=== PATIENT | male | born 1940 | race Caucasian/White ===

== ENCOUNTER 2019-04-18 09:43 | Inpatient (IN) | payer OTHER, MEDICARE ==
[~2019-04-18] VITALS: Ht 180.3 cm; Wt 87.3 kg
--- NOTE | ~2019-04-18 | HC ---
[facility] [address] CONSULTATION Name: ARJUN GOTTI Room #: 436-P ADM IN M.R.#: [id number] Admission: 04/18/19 Attend Phys: Israel Kidd MD Discharge: Date of : 38 Report #: [id number] THIS REPORT FOR: cc: Caesar Moctezuma MD,Jarrett Pruitt MD, MD ~ CC: Israel Moctezuma DATE OF SERVICE: 04/22/2019 HISTORY OF PRESENT ILLNESS: The patient is an 78-year-old male with a prior history of Parkinson's disease with some dementia, atrial fibrillation, who was admitted with acute mental status changes and cellulitis. He had redness of his left thigh. He was noted to have a fever 102, elevated white count. He was diagnosed with sepsis, was treated in the intensive care unit. He had a multifactorial encephalopathy. He is being seen by Infectious Disease and is on IV antibiotics. He is on nasal prong O2. He has had a significant decline from his premorbid functional level. We are seeing him in Rehabilitation Medicine consultation. PAST MEDICAL HISTORY: Includes Parkinson's disease, history of atrial fibrillation and is status post Watchman procedure. PAST SURGICAL HISTORY: As noted above. MEDICATIONS: As noted. ALLERGIES: No known drug allergies. SOCIAL HISTORY: Lives in a house with spouse. No steps. He had a part-time caregiver assistance 4 hours in the morning and 4 hours in the evening. He tends to spend a fair amount of time in a lift chair. The caregivers were able to get him up with at least mod assist with transfers and he was then typically placed in a wheelchair. Once in the wheelchair, they would take him over to the bathroom and he could stand with assistance to go into the bathroom approximately 3 steps with the walker and was able to turn around with assistance and get onto the toilet. assisted him during the non-caregiver times. REVIEW OF SYSTEMS: No specific complaints of chest pain, shortness of breath or abdominal discomfort. PHYSICAL EXAMINATION: GENERAL: An 78-year-old white male, in no obvious distress. VITAL SIGNS: Last recorded temperature 99, pulse 89, respirations 18, blood [address] [address] CONSULTATION Name: ARJUN GOTTI Room #: 436-P [facility] IN [facility].#: [id number] Admission: 04/18/19 Attend Phys: Israel Kidd MD Discharge: Date of : 38 Report #: [id number] pressure 112/62. NEUROLOGIC: The patient is alert, minimal verbalizations. He has masked facies, nasal prong O2 is in place. He was unable to tell me his occasion. He does follow basic 1-step commands, however. Facies appeared symmetric. He does have an obvious resting tremor of the right upper extremity more than the left upper extremity. There is evidence of bradykinesia. He has some cogwheeling of the wrists and elbows bilaterally. He has some evidence of rigidity. Some decreased range of motion of both upper extremities at end range with strength probably a grade 3+/5. Lower extremities, no focal calf swelling. He does have some evidence of rigidity. Strength is probably a grade 3+. He is max assist with sit to stand. He has stood yesterday up to 45 seconds. He does have some lean with sitting. Noted to be dependent with rolling. ASSESSMENT: An 78-year-old male with the following problem list: 1. Multifactorial/metabolic encephalopathy. 2. Parkinson's disease with bradykinesia, resting tremor with some retropulsion noted. 3. Sepsis. 4. Cellulitis. 5. Atrial fibrillation, status post Watchman procedure. 6. Significant assistance needed premorbidly, but nevertheless living in the home setting. PLAN: We are assessing his tolerance for an acute in-hospital inpatient rehabilitation stay. At this point, we will be glad to follow along with you. By: [id number] Jarrett Haro MD /ORIN
[2019-04-18 09:47] VITALS: BP 95/68
[2019-04-18 10:08] LABS: URINE BLOOD NEGATIVE (Negative); URINE CLARITY SL CLOUDY; URINE COLOR YELLOW; URINE GLUCOSE-RANDOM* NEGATIVE (Negative); URINE KETONES 1+ (Negative); URINE LEUKOCYTES-REFLEX NEGATIVE (Negative); URINE NITRITE-REFLEX NEGATIVE (Negative); URINE PROTEIN (DIPSTICK) 2+ (Negative); URINE SPECIFIC GRAVITY 1.025 (1.005-1.035)
[2019-04-18 10:08] LABS: HEMATOCRIT 41.7 % (42.0-52.0); HEMOGLOBIN 14.1 gm/dL (14.0-18.0); MCH 31.8 pg (26.0-34.0); MCHC 33.7 g/dL (28.0-37.0); MCV 94.3 fL (80.0-100.0); PLATELET COUNT 207 thou/uL (150-400); RBC 4.43 mil/uL (4.50-6.00); RDW 12.5 % (10.5-14.5); WBC 19.8 thou/uL (4.0-11.0)
[2019-04-18 10:11] LABS: URINE BILIRUBIN NEGATIVE (Negative)
[2019-04-18 10:12] LABS: ICTOTEST (BILI CONFIRMATORY) Negative (Negative)
[2019-04-18] MEDS ORDERED: KLONOPIN0.5 MG PO (10:19)
[2019-04-18] MEDS ORDERED: AVODART0.5 MG PO (10:20)
[2019-04-18] MEDS ORDERED: REMERON15 M2 PO (10:20)
[2019-04-18] MEDS ORDERED: LEXAPRO20 MG PO (10:20)
[2019-04-18 10:21] LABS: CASTS None Seen /LPF (None Seen); CRYSTALS None Seen /LPF (None Seen); SQUAMOUS 0-3 Few /LPF (0-3); TRANSITIONAL EPITHEL CELL 0-3 Few /LPF (None Seen); URINE WBC-REFLEX None Seen /HPF (0-5)
[2019-04-18 10:21] LABS: ANION GAP 11 mmol/L (7-16); BUN 36 mg/dL (7-18); CALCIUM 8.8 mg/dL (8.5-10.1); CHLORIDE 97 mmol/L (98-107); CO2 27 mmol/L (21-32); CREATININE 1.2 mg/dL (0.7-1.3); GLUCOSE 166 mg/dL (74-106); POTASSIUM 4.4 mmol/L (3.5-5.1); SODIUM 135 mmol/L (136-145)
[2019-04-18] MEDS ORDERED: TRAMADOL 50 MG50 MG PO (10:21)
[2019-04-18] MEDS ORDERED: ULTRAM 50MG TAB50 MG PO (10:21)
[2019-04-18] MEDS ORDERED: RYTARY ER 36.21 EACH PO (10:21)
[2019-04-18 10:22] LABS: AMP/METHAMP Negative (Negative); BACTERIA-REFLEX 1-9 Few /HPF (None Seen); BARBITURATES Negative (Negative); BENZODIAZEPINES Negative (Negative); COCAINE Negative (Negative); METHADONE Negative (Negative); OPIATES Negative (Negative); PCP Negative (Negative); URINE RBC None Seen /HPF (0-2)
[2019-04-18] MEDS ORDERED: ASA81BEC PO (10:22)
[2019-04-18] MEDS ORDERED: FISH OIL 1,001000 M3 PO (10:22)
[2019-04-18] MEDS ORDERED: STOOL SOFTENER100 MG PO (10:23)
[2019-04-18] MEDS ORDERED: POTASSIUM99 M1 PO (10:23)
[2019-04-18 10:24] LABS: MAGNESIUM 1.8 mg/dL (1.8-2.4)
[2019-04-18] MEDS ORDERED: VITAMIN D35000 UNI2 PO (10:24)
[2019-04-18 10:27] LABS: ALBUMIN 3.2 g/dL (3.4-5.0); SGOT 48 U/L (15-37); SGPT 8 U/L (30-65); TOTAL BILIRUBIN 1.1 mg/dL (<0.1-1.0); TOTAL PROTEIN 7.1 g/dL (6.4-8.2)
[2019-04-18 10:36] LABS: ANISOCYTOSIS 1+
[2019-04-18 10:38] LABS: TROPONIN-I <0.06 ng/mL (<0.06)
[2019-04-18 10:40] LABS: TROPONIN-I <0.06 ng/mL (<0.06)
[2019-04-18 12:31] VITALS: BP 91/62
[2019-04-18 15:03] VITALS: BP 105/75
[2019-04-18 15:38] VITALS: BP 104/67
--- NOTE | 2019-04-18 16:43 | NUR ---
NEW ADMIT FOR CELLULITIS OF THE LEFT LEG AND FEVER. PT SLEEPING ON ARRIVAL AND WILL AROUSE WHEN SPOKEN TO OR TOUCH AND RETURNS BACK TO SLEEPING. ADMISSION ASSESMENT AND HISTORY COMPLETED WITH . PT DOES NOT APPEAR TO HAVE PAIN, NO TEMP AT THIS TIME. BED LOCKED AND BED ALARM IN PLACE. WILL MOVE CLOSER TO NURSES STATIONS, PER PATIENT WILL LIKELY TO BE IMPULSIVE. WILL REQUIRE FEEDING WITH MECHANICAL SOFT DIET.FALL PRECAUTIONS IN PLACE. STAFF TO ANTICIPATE NEEDS.
[2019-04-18 19:43] VITALS: BP 123/86
[2019-04-18 19:44] VITALS: BP 123/86
--- NOTE | 2019-04-19 02:15 | NUR ---
ASSUMED CARE FROM DAY SHIFT PT VERY DROWSY AWAKEN WHEN NAME IS CALLED , ASSESSMENT COMPLETES MONITOR SHOWS AFIB ON MARKETING SEGMENT MANAGER, VITAL SIGNS STABLE, PT AWAKEN AROUND 0200 VOIDED 250 ML OF CLEAR YELLOW URINE. PT RESTING WLL THROUGHOUT HOURLY ROUNDS WILL CONITNUE WITH PRESENT PAULA OF CARE AND WILL REPORT CHANGES.
[2019-04-19 04:23] LABS: ABSOLUTE NEUTROPHILS 17.9 thou/uL (1.4-8.2); BASOPHILS 0.3 % (0.0-2.0); HEMATOCRIT 37.5 % (42.0-52.0); MCH 30.8 pg (26.0-34.0); MCV 96.3 fL (80.0-100.0); MONOCYTES 5.1 % (1.0-8.0); PLATELET COUNT 183 thou/uL (150-400); POLYS 89.6 % (36.0-66.0); RBC 3.89 mil/uL (4.50-6.00); WBC 19.9 thou/uL (4.0-11.0)
[2019-04-19 04:36] LABS: CALCIUM 7.4 mg/dL (8.5-10.1); CREATININE 0.8 mg/dL (0.7-1.3); POTASSIUM 4.1 mmol/L (3.5-5.1)
[2019-04-19 05:00] VITALS: BP 110/82
[2019-04-19 07:45] VITALS: BP 102/69
[2019-04-19 12:35] VITALS: BP 109/78
[2019-04-19 15:30] VITALS: BP 110/69
--- NOTE | 2019-04-19 15:52 | NUR ---
ASSUMED CARE 0700. AWAKE TODAY, ALERT TO SELF AND FAMILY. DENIES PAIN, DENIES SOB. DURING EARLY MORING ROUNDS PRIMARY RN NOTED PT WAS GIVEN AMIODARONE DRIP OVER NIGHT. DR BEAL, INSTITUTE SCIENTIST STEVEN, ROSS MADE AWARE. NO ADVERSE REACTION NOTED, VS WNL. UP TO COMMODE WITH MAX ASSIST 5X NO BM AT THIS TIME. REQUEST FOR PRUNE JUICE GIVEN. PT'S LAST BM WAS 04/17. BARRIER CREAM APPLIED TO BUTTOCKS, LEFT LEG ELEVATED ON 2 PILLOWS AND IS RED AND SWOLLON DOWN TO FOOT. AFIB ON TELE RATE CONTROLED. TAKES PILLS WHOLE WITH WATER. HX OF PARKINSONS/DEMENCIA PT WILL SWITCH BETWEEN CHILEAN AND LATVIAN. SET UP WITH MEALS. PT UNABLE TO DEMONSTRATE THE CALL LIGHT. CLOSE TO NURSE STATION FOR OVERSIGHT. FALL PRECAUTION IN PLACE. BEDSIDE AT THIS TIME.
[2019-04-19 20:21] VITALS: BP 118/80
--- NOTE | 2019-04-20 02:45 | NUR ---
ASSUMED CARE OF PATIENT AT 1900. VSS, AFEBRILE. ABLE TO ANSWER SOME ORIENTATION QUESTIONS, HOWEVER GOES BACK AND FORTH BETWEEN LIBERIAN AND WELSH. CONFUSED AT SOME TIMES. USES URINAL WHEN PROMPTED. CAREGIVER AT BEDSIDE UNTIL 10PM. LEFT LEG REMAINS RED AND SWOLLEN, ELEVATED ON PILLOWS. WORKING TOWARDS POC GOALS.
[2019-04-20 05:28] VITALS: BP 129/93
[2019-04-20 05:31] LABS: ABSOLUTE NEUTROPHILS 12.1 thou/uL (1.4-8.2); BASOPHILS 0.2 % (0.0-2.0); EOSINOPHILS 0.6 % (0.0-3.0); HEMATOCRIT 38.5 % (42.0-52.0); HEMOGLOBIN 12.6 gm/dL (14.0-18.0); LYMPHOCYTES 10.3 % (24.0-44.0); MCHC 32.6 g/dL (28.0-37.0); MCV 95.1 fL (80.0-100.0); PLATELET COUNT 229 thou/uL (150-400); POLYS 81.9 % (36.0-66.0); RBC 4.04 mil/uL (4.50-6.00); RDW 12.5 % (10.5-14.5); WBC 14.7 thou/uL (4.0-11.0)
[2019-04-20 05:52] LABS: CALCIUM 8.5 mg/dL (8.5-10.1); CREATININE 0.8 mg/dL (0.7-1.3); POTASSIUM 3.8 mmol/L (3.5-5.1)
[2019-04-20 07:30] VITALS: BP 129/88
--- NOTE | 2019-04-20 10:32 | NUR ---
Assess due to RD consult received. Admit with cellulitis to thigh, fever, encephalopathy. Hx Parkinsons and dementia. Pt unable to answer questions. Caregiver in room-states usually with good appetite but eating "hit or miss" past several days. No wt changes from usual were reported. ST is assessing for swallow eval this am. Will start oral supplement until intake more consistent. Low nutrition risk.
--- NOTE | 2019-04-20 11:19 | NUR ---
ASSUMED CARE AT 0700, SHIFT ASSESSMENT DONE, MEDS GIVEN, VSS. DENIES PAIN, NAUSEA, VOMITING. ALERT TO SELF ONLY, AFIB ON THE MONITOR, RATE CONTROLLED. INCONTINENT OF BOWEL AND BLADDER. LUMBER SALES SUPERVISOR AT THE BEDSIDE. WILL CONTINUE TO ASSESS AND ASSIST WITH ADLs NEEDED.
[2019-04-20 11:20] VITALS: BP 130/90
[2019-04-20 15:25] VITALS: BP 126/68
[2019-04-20 15:30] VITALS: BP 131/89
--- NOTE | 2019-04-20 16:51 | NUR ---
Patient admits with cellulitis and fever. Patient with garbled speech and unable to give hx. He has parkinsons. Sp with at bedside. She reports patient has caregivers at home from 8-12 in am then 8-11 in evening. reports she is caregiver during that time. She reports with Parkinsons she wants to keep patient routine. She reports she heard the word rehab today but she prefers home. Rec HH in past but they have s/o they rec in Dec 2018. would [facility] HH [facility] [place]. PCP Dr Tarun redd. Patient has ramp to home and wc. casemgt following
[2019-04-20 20:21] VITALS: BP 168/85
[2019-04-21 05:22] VITALS: BP 144/85
[2019-04-21 05:22] LABS: HEMATOCRIT 36.1 % (42.0-52.0); HEMOGLOBIN 11.9 gm/dL (14.0-18.0); MCH 31.4 pg (26.0-34.0); MCV 95.2 fL (80.0-100.0); RBC 3.79 mil/uL (4.50-6.00); RDW 12.9 % (10.5-14.5); WBC 12.7 thou/uL (4.0-11.0)
[2019-04-21 05:31] LABS: CALCIUM 8.2 mg/dL (8.5-10.1); CREATININE 0.7 mg/dL (0.7-1.3); POTASSIUM 3.8 mmol/L (3.5-5.1)
[2019-04-21 08:00] VITALS: BP 129/87
--- NOTE | 2019-04-21 10:19 | NUR ---
FAXED REFERRAL TO [facility] SPOKE WITH PENNY IN INTAKE SHE RECEIVED REFERRAL AND WILL REVIEW. DP TO FOLLOW.
[2019-04-21 11:35] VITALS: BP 143/101
--- NOTE | 2019-04-21 15:05 | NUR ---
PT CARE ASSUMED APPROX 0700. ASSESSMENT CHARTED. NO APPARENT PAIN AFTER PAIN MEDS GIVEN. NO SOA OR DISTRESS NOTED OF ANY KIND. VSS. TURNING Q2 HRS AND PRN. GIVEN CLINICAL UPDATES. SHE DENIES QUESTIONS AND CONCERNS OF THIS AM. ELEVATING BLE PER ORDER. TELE DC'D PER HOSPITALIST SO PT TO TRANSFER AT THIS TIME TO MEDSUR UNIT. REPORT CALLED AND RECEIVING NURSE DENIES QUESTIONS OR CONCERNS REGARDING PT'S POC OR TRANSFER. CAREGIVER AT BEDSIDE REPORTS THAT SHE WILL UPDATE THE PT'S TO THE NEW ROOM NUMBER TIMELY. TRANSFERRING AT THIS TIME.
[2019-04-21 15:26] VITALS: BP 130/102
--- NOTE | 2019-04-21 15:31 | NUR ---
patient transferred from CCU to . Rec message [facility] cannot accept patient due to capacity. Caregiver at bedside gave her list of agencies to take to room that patient will transfer. Left message on wifes cell phone.
--- NOTE | 2019-04-21 19:23 | NUR ---
Pt transferred from 2N approx 1600. Pt a&ox1. Q2h turn. Incontinent b&b. Chest x-ray ordered. Family at bedside. Fall precautions in place. Report given to sreedhar REGAN.
[2019-04-21 23:31] VITALS: BP 149/87
[2019-04-22 04:46] VITALS: BP 129/86
[2019-04-22 05:37] LABS: HEMATOCRIT 37.1 % (42.0-52.0); HEMOGLOBIN 12.3 gm/dL (14.0-18.0); MCH 31.5 pg (26.0-34.0); MCV 95.2 fL (80.0-100.0); RBC 3.9 mil/uL (4.50-6.00); RDW 12.8 % (10.5-14.5); WBC 12.3 thou/uL (4.0-11.0)
[2019-04-22 06:09] LABS: CALCIUM 7.9 mg/dL (8.5-10.1); CREATININE 0.8 mg/dL (0.7-1.3); POTASSIUM 3.8 mmol/L (3.5-5.1)
--- NOTE | 2019-04-22 07:50 | NUR ---
ASSUMED PT CARE AT 1900. PT RESTLESS THIS EVENING, MOANING FREQUENTLY. SPOKE TO , GOT ORDER TO PAIN MEDS, DID NOT SEEM TO HELP. FEVER NOTED, GIVEN TYLENOL. O2 SAT MID 80S, PUT ON 3L OF O2. LUNG SOUNDS COASE, SOME WHEEZES/CRACKLES ALL OVER. CORE DROPPER NOTIFIED, STARTING PT ON BREATHING TREATMENTS. REPOSITIONED ON RIGHT SIDE AND BACK ONLY PER FAMILY'S REQUEST. MEDS GIVEN CRUSHED WITH APPLESAUCE. CURRENTLY RESTING COMFORTABLY IN BED.
[2019-04-22 08:07] VITALS: BP 112/62
[2019-04-22 08:47] LABS: % SATURATION 13 % (20-39); IRON 20 ug/dL (65-175); TIBC 149 ug/dL (250-450)
[2019-04-22 09:08] LABS: FOLIC ACID 22.5 ng/mL (8.6-58.9)
--- NOTE | 2019-04-22 09:51 | NUR ---
WOUND CONSULT; THIS PATIENT HAS A DTI, AND HE WAS ADMITTED YESTERDAY. THE INJURY WAS NOTED ON ADMISSION. THE BRUISING MEASURES APPROX. 3 X 3 PUPLE/RED/BROWN SKIN CHANGES PRESENT. THE SKIN IS INTACT. THE PATIENT HAS A LOW AIRLOSS PUMP FOR OFFLOADING AND WEDGES AND PILLOWS ARE EMPLOYED. RECOMMENDATIONS; SUSHANT DAILY/PRN DISCUSSED WITH SHEREEN
--- NOTE | 2019-04-22 14:49 | NUR ---
PHYSICIAN AND PT'S SPOUSE INDICATED THEY WERE INTERESTED IN PT GOING TO 5N. 5N ASSESSED AND INDICATED PT WAS APPROPRIATE FOR ADMISSION ANTICIPATED TOMORROW. CM TO FOLLOW INDICATED WITH DC PLANNING.
--- NOTE | 2019-04-22 14:50 | NUR ---
Assumed care of pt at 0700. Pt a&ox1. Caregiver in the room. Pt's called in the am and had some questions for the doctor. When doctor rounded on the patient, called pt's and questions were answered. Speech consulted. Diet changed to pureed. PT/OT consulted. Pt up to the chair for lunch. Max assist. Q2h turn. IV antibiotics infused. Edema on right lower extremity and testicles. Chest X-ray and KUB ordered. Wound care saw patient for sore on left buttock. Zguard applied. Possible d/c to 5N when ready for discharge. Fall precautions in place. Will continue to monitor.
[2019-04-22 15:42] VITALS: BP 134/93
[2019-04-22 20:00] VITALS: BP 145/107
[2019-04-23 01:00] LABS: BE(vivo) -0.8 mmol/L (-2 to +3); HCO3 22.6 mmol/L (22.0-26.0); PCO2 33.4 mmHg (35.0-45.0); PO2 68.6 mmHg (80.0-100.0); pH 7.448 (7.360-7.450); sO2 94.6 % (92.0-98.0)
[2019-04-23 03:20] VITALS: BP 130/80
[2019-04-23 05:38] LABS: ABSOLUTE NEUTROPHILS 6.2 thou/uL (1.4-8.2); BASOPHILS 0.4 % (0.0-2.0); EOSINOPHILS 0.1 % (0.0-3.0); HEMATOCRIT 34.6 % (42.0-52.0); HEMOGLOBIN 11.6 gm/dL (14.0-18.0); LYMPHOCYTES 7.2 % (24.0-44.0); MCH 31.7 pg (26.0-34.0); MCHC 33.4 g/dL (28.0-37.0); MONOCYTES 10.7 % (1.0-8.0); PLATELET COUNT 221 thou/uL (150-400); POLYS 81.6 % (36.0-66.0); RBC 3.65 mil/uL (4.50-6.00); RDW 12.7 % (10.5-14.5); WBC 7.6 thou/uL (4.0-11.0)
[2019-04-23 05:49] LABS: ALBUMIN 2.4 g/dL (3.4-5.0); CALCIUM 7.8 mg/dL (8.5-10.1); POTASSIUM 3.7 mmol/L (3.5-5.1); TOTAL BILIRUBIN 0.7 mg/dL (<0.1-1.0)
--- NOTE | 2019-04-23 05:55 | NUR ---
ASSUMED PT CARE AT APPROX 1900.PT WAS OBSERVED SITTING UP IN HIS BED AND WATCHING TV AT THE START OF SHIFT.PT OBSERVED TO BE ON 2L/NC.PT STARTED HAVING LABORED BREATHING AND WAS REALLY RESTLESS.PANTRY GOODS MAKER ON DUTY NOTIFIED,ORDER NOTED TO GIVE LASIX ONETIME AND INSERT SHAW CATH.ORDER NOTED.DR SULTANA HERE TO SEE PT,ORDER NOTED TO DO A BLADDER SCAN.PT WAS FOUND TO BE RETAINING SOME URINE.LASIX GIVEN AND SHAW INSERTED,GOT GREATER THAN 350CC OUT IMMEDIATELY. PT WAS STILL RESTLESS AND CLONAZEPAM WAS ADMINISTERED.PT CONT TO HAVE CRACKLES AND STRUGGLING TO BREATHE,PANTRY GOODS MAKER ON DUTY NOTIFIED,ORDER NOTED TO DO CXR STAT.RESULT READ TO THE PANTRY GOODS MAKER.PT CONT ON RT TX ORDERD AND PRN TX GIVEN ALSO.PT'S CALLED FOR UPDATE ON PT AND SHE WAS NOTIFIED THAT SHAW WAS INSERTED FOR RETENTION.PT'S WAS NOT HAPPY WITH THE NEWS BECAUSE SHE WAS ABOUT TO STOP THE PROCEDURE.PT'S WAS HEARD IN THE BACKGROUND SCREAMING"OH MY GOD" PT'S WAS EDUCATED ON THE REASON WHY PT NEEDED THE SHAW.PT'S CAREGIVER IN THE ROOM.PT'S LATER CAME TO THE FLOOR IN THE COMPANY OF HER SISTER AND SHE APOLOGIZED FOR ACTING THE WAY SHE DID.PORTABLE CXR DONE,ABG DONE.PT REPOSITIONED WHILE IN BED PER FAMILY'S REQUEST AND DIRECTION.PT FEBRILE EARLIER ON THE SHIFT,TYLENOL ADMINISTERED,NOT EFFECTIVE.PT SLEEPY,UNABLE TO SWALLOW ANYTHING ,PANTRY GOODS MAKER NOTIFIED TO CHANGE HIS PO TYLENOL TO SUPPOSITORY.MAG CITRATE GIVEN AT START OF SHIFT BUT PT ONLY ABLE TO DRINK SOME OF IT.NO BM SO FAR THIS SHIFT.PT RESTING ON HIS BED AT THIS TIME,CONT ON 2L/NC.FALL PRECAUTIONS IN PLACE,CALL LIGHT WITHIN REACH.
[2019-04-23 07:40] VITALS: BP 90/60
[2019-04-23 08:00] VITALS: BP 124/86
--- NOTE | 2019-04-23 14:38 | NUR ---
IT WAS ANTICPATED THAT PT WOULD BE MEDICALLY STABLE TO DC TO 5N THIS DAY BUT CARE TEAM INIDCATED THAT PT IS NOT YET READY. 5N ABLE TO ACCEPT ONCE MEDICALLY STABLE. CM TO FOLLOW INDICATED WITH DC PLANNING.
[2019-04-23 15:10] VITALS: BP 100/75
--- NOTE | 2019-04-23 18:30 | NUR ---
PT ASSESSED AT START OF SHIFT. AT BEDSIDE THIS AM AFTER STAYING THE NOC. AND RN TRIED TO AROUSE PT BUT HE WAS TOO SLEEPY FROM ANTIANXIETY MED GIVEN LAST NOC AND WAS NOT ABLE TO AWAKEN ENOUGH TO TAKE MEDS SAFELY. PT TURNED Q2HRS. ABLE TO GIVEN PARKINSON'S MED LATE MORNING AND MID AFTERNOON W/ THICKENED WATER AND DID WELL. PT BECAME ALERT AROUND 1830 AND TRIED TO TALK W/ CAREGIVER. RESP EVEN AND UNLABORED AT THIS TIME. BREATH SOUNDS CONJESTED W/ SOME TIGHTNESS ON LLL NOTED.
[2019-04-23 19:15] VITALS: BP 129/93
[2019-04-24 00:42] VITALS: BP 111/74
--- NOTE | 2019-04-24 03:34 | NUR ---
RECIEVED CARE AT 1900. PATIENT ALERT AND ORIENTED TO SELF. PATIENT INTERACTING WITH CAREGIVER AND [id number]. PATIENT DEVELOPED A FEVER OF 101.3. TYLENOL SUPPOSIROTY GIVEN. HAD BM RIGHT AFTER AND PART OF SUPPOSITORY CAME OUT. TEMP RETAKEN A LITTLE LATER AND WAS 102.4. TYLENOL SUPPOSITORY WAS GIVEN AGAIN. THESE TEMPS WERE TAKEN AXULARRY. NURSE PRACTIONER WAS NOTIFIED AND SHE WANTED TEMP TO BE TAKEN RECTAL. TEMP TAKEN RECTAL AND WAS 102.7. NURSE PRACTIONER WAS NOTIFIED WELL DR PERRY SULTANA. DR SULTANA ORDERED VANCO TO BE GIVEN. WAS HUNG WHEN RECIEVED FROM PHARMACY. PATIENT HAD BEEN RESTLESS WITH LOTS OF MOANING FIRST PART OF NIGHT. PATIENT APPEARS TO BE RESTING PEACEFULLY AT THIS TIME.
--- NOTE | 2019-04-24 04:14 | NUR ---
TEMP AT 0410 WAS 99.9.
[2019-04-24 04:15] VITALS: BP 105/76
[2019-04-24 07:59] VITALS: BP 140/86
--- NOTE | 2019-04-24 08:56 | NUR ---
WOUND CARE F/U ASSESSED WOUND L BUTTOCK W/ ASSISTANT DESIGNER, DTI NOTED, REMAINS PURPLISH/DARK TISSUE, NONBLANCHABLE,NO OPEN AREAS, COOPERATIVE, REMAINS ON LOW AIR LOSS PUMP TO BED RECOMMENDATIONS ZGUARD DAILY AND PRN, CONT LOW AIR LOSS TO BED, OFF LOADING, W/ PILLOWS AND WEDGES, TURN AT LEAST Q 2HOURS ASSISTANT DESIGNER AWARE
[2019-04-24 09:31] LABS: HEMATOCRIT 35.3 % (42.0-52.0); HEMOGLOBIN 11.6 gm/dL (14.0-18.0); MCH 31.3 pg (26.0-34.0); MCHC 32.8 g/dL (28.0-37.0); MCV 95.5 fL (80.0-100.0); RBC 3.7 mil/uL (4.50-6.00); RDW 13.2 % (10.5-14.5); WBC 7.7 thou/uL (4.0-11.0)
[2019-04-24 09:38] LABS: CALCIUM 7.9 mg/dL (8.5-10.1); CREATININE 0.7 mg/dL (0.7-1.3); MAGNESIUM 1.6 mg/dL (1.8-2.4); POTASSIUM 3.5 mmol/L (3.5-5.1)
--- NOTE | 2019-04-24 14:49 | NUR ---
CARE TEAM INDICATED THAT PT IS SLOWLEY PROGRESSING TOWARD GOAL OF DISCHARGE TO 5N. CARE TEAM INDICATED THAT PT MAY BE READY SATURDAY OR SATURDAY. NOTIFY STAFF AND SPOUSE WHEN MEDICALLY STABLE. CM TO FOLLOW INDICATED WITH DC PLANNING.
[2019-04-24 14:57] LABS: URINE BILIRUBIN NEGATIVE (Negative); URINE BLOOD 3+ (Negative); URINE CLARITY CLEAR; URINE COLOR YELLOW; URINE GLUCOSE-RANDOM* NEGATIVE (Negative); URINE KETONES TRACE (Negative); URINE LEUKOCYTES-REFLEX NEGATIVE (Negative); URINE NITRITE-REFLEX NEGATIVE (Negative); URINE PROTEIN (DIPSTICK) 1+ (Negative); URINE SPECIFIC GRAVITY >= 1.030 (1.005-1.035); URINE UROBILINOGEN 0.2 E.U./dl (0.2-1.0)
[2019-04-24 15:05] LABS: SQUAMOUS None Seen /LPF (0-3); URINE WBC-REFLEX 0-5 Rare /HPF (0-5)
[2019-04-24 15:06] LABS: BACTERIA-REFLEX 1-9 Few /HPF (None Seen); CASTS None Seen /LPF (None Seen); CRYSTALS None Seen /LPF (None Seen); URINE RBC 3-10 Few /HPF (0-2)
--- NOTE | 2019-04-24 15:34 | EKG ---
[facility] [place] [address] ELECTROCARDIOGRAM REPORT Name: ARJUN GOTTI Room #: 436-P ADM IN M.R.#: [id number] Admission: 04/18/19 Attend Phys: Israel Kidd MD Discharge: Date of : 38 Report #: [id number] THIS REPORT FOR: cc: Caesar Moctezuma MD, Michele MD Park,Zach Coleman MD ~ THIS REPORT FOR: //name// [facility] ED Test Date: 2019-04-18 Test Time: 10:09:41 Pat Name: ARJUN GOTTI Department: Room: Gender: Brush Operator: tim : 1940 Requested By: Soy Box Order Number: [id number] MD: Zach Stovall Measurements Intervals [place] Rate: 107 P: ME: QRS: -48 QRSD: 111 T: 146 QT: 312 QTc: 417 Interpretive Statements Atrial fibrillation Incomplete left bundle branch block No previous ECG available for comparison Electronically Signed On 04-18-2019 12:54:13 OBIEE LEAD DEVELOPER by Zach Stovall [email or web address] <ELECTRONICALLY SIGNED> By: Zach Stovall MD 04/18/19 1254 D: 02/1008 08 Zach Stovall MD /[facility]
--- NOTE | 2019-04-24 16:14 | NUR ---
PATIENT IS A CANDIDATE FOR ACUTE REHAB AND PLAN TO ADMIT PATIENT WHEN MEDICALLY STABLE. ANTICIPATE ADMISSION SATURDAY OR SATURDAY (04/25 OT 04/27/19). IF QUESTIONS OR PATIENT IS READY TO ADMIT TO REHAB: AUTOMATION CLERK DEMOLITION EXPERT THIS WEEKEND, FREEDOM Owen, AND CAN BE REACHED BY LIAISON CELL PHONE AT [phone].
[2019-04-24 17:37] VITALS: BP 150/90
--- NOTE | 2019-04-24 18:40 | NUR ---
VSS-AFEBRILE. LUNGS DIMINISHED IN ALL HOOKS BILATERALLY. 2LNC. SHAW TO BE DISCONTINUED PER ORDERS. GOOD APPETITE, SPOUSE AT BEDSIDE THROUGH DAY. FALL PRECAUTIONS IN PLACE, UP TO CHAIR FOR BREAKFAST AND LUNCH.
[2019-04-24 19:25] VITALS: BP 120/82
--- NOTE | 2019-04-25 04:20 | NUR ---
PT AWAKE, ALERT TO SELF. PT REPORTS PAIN 5/10 IN ABDOMEN. PT RECEIVING PRN QHS TRAMADOL. PT TOLERATING PUREED PO INTAKE WITHOUT ISSUE. SHAW DISCONTINUED PER ORDERS ON 04/24/19 AT 2200. FREQUENT REPOSITIONING ENCOURAGED. ELEVATING OF BLE CONTINUES. NS AND ZGUARD APPLIED TO LEFT BUTTOCKS, OFFLOADING CONTINUES. PT RESTING IN BED THROUGHOUT SHIFT, PT NOTED TO HAVE DIFFICULTY FALLING ASLEEP. ENVIRONMENTAL STIMULI DECREASED. ENCOURAGED PT TO NOTIFY STAFF FOR ALL NEEDS. PT ROOM REMAINS CLOSE TO NURSES STATION, STAFF ENCOURAGED TO NOTIFY PT ROSS FOR CHANGES, QUESTIONS AND CONCERNS. CALL LIGHT WITHIN REACH, BED IN LOWEST POSITION, BED ALARM ON. WILL CONTINUE TO MONITOR.
[2019-04-25 05:10] VITALS: BP 127/89
[2019-04-25 06:03] LABS: HEMOGLOBIN 11.4 gm/dL (14.0-18.0); MCH 31.3 pg (26.0-34.0); MCHC 32.6 g/dL (28.0-37.0); MCV 96.1 fL (80.0-100.0); RBC 3.64 mil/uL (4.50-6.00); RDW 12.7 % (10.5-14.5); WBC 5.9 thou/uL (4.0-11.0)
[2019-04-25 06:21] LABS: CALCIUM 7.6 mg/dL (8.5-10.1); CREATININE 0.6 mg/dL (0.7-1.3); MAGNESIUM 1.6 mg/dL (1.8-2.4); POTASSIUM 3.4 mmol/L (3.5-5.1)
[2019-04-25 07:36] VITALS: BP 136/79
--- NOTE | 2019-04-25 08:51 | NUR ---
DR TEMPLETON HERE TO SEE PATIENT. NEW ORDERS FOR LASIX AND KCL PUT CONDOM CATH ON PATIENT. CALLED TO INFORM OF CONDOM CATH AND NEW MED ORDERS.
--- NOTE | 2019-04-25 16:31 | NUR ---
AT APPROX 1315 SHAW CATH INSERTED ORDERED IMMEDIATE RETURN OF CLEAR YELLOW URINE. NO DISCOMFORT TO PATIENT. YUAN IN ROOM STATES WAS NURSE SPOUSE WAITED IN HALLWAY. PT W/O PAIN OR RESP DISTRESS.
[2019-04-25 16:45] VITALS: BP 113/60
--- NOTE | 2019-04-25 16:47 | NUR ---
CALLED DR TEMPLETON FOR ABI TO CHANGE OR DC ALL MEDS FOR CONSTAPATION HE GAVE ORDER TO MAKE PRN. HERE AT BEDSIDE SHE WAS INFORMED ABOUT MED ORDER CHANGES.
--- NOTE | 2019-04-25 18:12 | NUR ---
PT RESTING IN BED DID NOT EAT MUCH AT DINNER 25% ELECTRON GUN ASSEMBLER WAS FEEDING HIM NO PAIN SHAW WITH CLEAR YELLOW URINE IN SHAW BAG. CONT ON IV ABT'S. AND HER SISTER AT BEDSIDE. THERAPY CAME IN TO EXPLAIN THERAPY SCEDULES.
[2019-04-25 19:45] VITALS: BP 131/79
--- NOTE | 2019-04-26 08:03 | NUR ---
PT LYING IN BED. NO APPARENT PAIN. INCONTINENT OF STOOL. RESTING COMFORTABLY. FREQUENT OBSERVATION.
[2019-04-26 08:43] VITALS: BP 143/97
[2019-04-26 09:39] LABS: HEMATOCRIT 35.5 % (42.0-52.0); HEMOGLOBIN 11.8 gm/dL (14.0-18.0); MCH 31.7 pg (26.0-34.0); MCHC 33.2 g/dL (28.0-37.0); MCV 95.5 fL (80.0-100.0); RBC 3.72 mil/uL (4.50-6.00); RDW 12.9 % (10.5-14.5); WBC 5.5 thou/uL (4.0-11.0)
[2019-04-26 09:47] LABS: CALCIUM 8.3 mg/dL (8.5-10.1); CREATININE 0.8 mg/dL (0.7-1.3); MAGNESIUM 1.8 mg/dL (1.8-2.4); POTASSIUM 3.6 mmol/L (3.5-5.1)
--- NOTE | 2019-04-26 16:05 | NUR ---
VSS-AFEBRILE. LUNGS CLEAR/DIMINISHED IN ALL HOOKS BILATERALLY-ROOM AIR. SPOUSE AT BEDSIDE, WANTS PATIENT TO GO TO REHAB FOR STRENGTHENING AT DISCHARGE, BUT PATIENT DECLINES. HOME HEALTH WAS ALSO OFFERED, BUT DECLINED. DISCUSSED ALL DISCHAGE INSTRUCTIONS, INCLUDING USE OF LEVOFLOXACIN. PATIENT AND SPOUSE BOTH VERBALIZED UNDERSTANDING OF ALL MATERIALS PRESENTED. SUPRAPUBIC CATHETER IN PLACE AT DC, AND IS DRAINING ADEQUATE AMOUNTS OF CLEAR, YELLOW URINE TO DEPENDENT DRAINAGE BAG. RIGHT UPPER ARM PICC LINE REMOVED PER ORDERS FROM DR TEMPLETON, PRESSURE HELD, AND BANDAID APPLIED. TAKEN OFF UNIT AND TO PRIVATE VEHICLE IN WHEELCHAIR BY UNIT STAFF.
--- NOTE | 2019-04-26 16:42 | NUR ---
VSS-LOW GRADE TEMP OF 99.7. LUNGS COURSE AND WHEEZT THROUGHOUT ALL LUNG HOOKS. 3LNC. CT OF CHEST, ABDOMEN AND PELVIS THIS SHIFT, TOLERATED WELL. POOR APPETITE. TURNED AND OFFERED ORAL HYDRATION EVERY TWO HOURS. NO REPORTED PAIN. LETHARGIC, BUT AROUSABLE THROUGH DAY. FALL PRECAUTIONS IN PLACE.
[2019-04-26 18:05] VITALS: BP 132/85
[2019-04-26 20:10] VITALS: BP 153/97
--- NOTE | 2019-04-26 22:00 | NUR ---
ASSESSMENT COMPLETED AT START OF SHIFT. PT IS AWAKE. ASKING FOR SOMETHING TO DRINK. DENIES PAIN. CONTINUES ON 03/23L/NC SATTING OKAY. LUNGS WITH WHEEZES. CONTINUES ON ZOSYN AND VANCOMYCIN. FEBRILE. Q2HR TURN. SHAW WITH DARK YELLOW URINE.PT CALM, NOT YELLING. SPEECH CAN BE UNDERSTOOD.SMILING A LITTLE.WILL CONTINUE WITH POC TILL EOS.
[2019-04-27 04:00] VITALS: BP 139/90
[2019-04-27 06:03] LABS: MCH 31.2 pg (26.0-34.0); MCHC 32.4 g/dL (28.0-37.0); MCV 96.2 fL (80.0-100.0); RBC 3.53 mil/uL (4.50-6.00); RDW 12.8 % (10.5-14.5); WBC 5.1 thou/uL (4.0-11.0)
[2019-04-27 06:09] LABS: CALCIUM 7.8 mg/dL (8.5-10.1); CREATININE 0.8 mg/dL (0.7-1.3); MAGNESIUM 1.8 mg/dL (1.8-2.4); POTASSIUM 3.6 mmol/L (3.5-5.1)
[2019-04-27 07:16] VITALS: BP 138/95
--- NOTE | 2019-04-27 08:38 | NUR ---
WOUND CARE NOTE ASSESSED L BUTTOCK WOUND W/ ASSEMBLER CRIMPER, HEALING, AREA MORE RED, LESS PURPLE DISCOLORATION, COOPERATIVE, LOW AIR LOSS PUMP TO BED BUT BED NOT WORKING, RN AWARE, TO PLACE ORDER TO GET BED FIXED RECOMMENDATIONS CONT ZGUARD DAILY AND PRN L BUTTOCK WOUND, TURN AT LEAST Q2 HOURS AND PRN, OFF LOADING, CONT LOW AIR LOSS PUMP TO BED ASSEMBLER CRIMPER AWARE
--- NOTE | 2019-04-27 11:18 | NUR ---
Followup: cellulitis to thigh. Hx Parkinsons, dementia. Still not eating too well this admit however has been placed on puree diet with swallow precautions by ST last week for possible aspiration pneumonia. Spoke with spouse this am, she has asked physician for diet upgrade to mechanical altered given pt feeling stronger. Intake has been poor but will drink chocolate ensure per . Plan is for admit to inpatient rehab today-communicated dietary interventions to RD covering rehab unit. Low nutrition risk
--- NOTE | 2019-04-27 13:41 | NUR ---
CARE TEAM INDICATED THAT PT IS MEDICALLY STABLE TO DC TO 5N ACUTE INPATIENT REHAB HERE AT [facility] THIS DAY. PT AND SPOUSE AWARE AND AGREEABLE. REPORT TO BE CALLED TO . NO OTHER CM INTERVENTION INDICATED. CASE CLOSED.
[2019-04-27] MEDS ORDERED: ACETAMINOPHEN650 MG RECTAL (14:25)
[2019-04-27] MEDS ORDERED: IPRAT-ALBUT 0.5-3 ML INH (14:25)
[2019-04-27] MEDS ORDERED: VANCOMYCIN1 GM/2002 IV (14:25)
[2019-04-27] MEDS ORDERED: ZOSYN 3/0.373.375 G3 IV (14:25)
[2019-04-27] MEDS ORDERED: HOME MEDICATION PO ×2 (14:25)
[2019-04-27] MEDS ORDERED: HYDROXYZINE HCL10 M2 PO (14:25)
[2019-04-27] MEDS ORDERED: ENOXAPARIN40 MG/0.1 SUBQ (14:25)
[2019-04-27] MEDS ORDERED: FLOMAX0.4 MG PO (14:25)
== END 2019-04-27 18:02 | DRG 871 ==
LOC: ER 09:43 → EROBS 11:19 → 2N 11:19 → 4S 04-21 15:23
PROVIDERS: Emergency Medicine; Internal Medicine; Internal Medicine Infectious Disease; Specialist; ADMIT Hospitalist
DX: A41.9 Sepsis, unspecified organism (principal); G93.41 Metabolic encephalopathy; J69.0 Pneumonitis due to inhalation of food and vomit; J98.11 Atelectasis; L03.116 Cellulitis of left lower limb; G20 Parkinson's disease; F02.80 Dementia in other diseases classified elsewhere, unspecified severity, without behavioral disturbance, psychotic disturbance, mood disturbance, and anxiety; L40.9 Psoriasis, unspecified; I48.91 Unspecified atrial fibrillation; F32.9 Major depressive disorder, single episode, unspecified; F41.9 Anxiety disorder, unspecified; N40.1 Benign prostatic hyperplasia with lower urinary tract symptoms; N39.498 Other specified urinary incontinence; K59.00 Constipation, unspecified; R53.81 Other malaise; L89.329 Pressure ulcer of left buttock, unspecified stage; Z79.82 Long term (current) use of aspirin; Z79.899 Other long term (current) drug therapy; Z28.89 Immunization not carried out for other reason
CPT/HCPCS: 10081; 10102

== ENCOUNTER 2019-04-23 09:41 | Inpatient (IN) | payer OTHER, MEDICARE ==
[~2019-04-23] VITALS: Ht 180.3 cm; Wt 90.3 kg
--- NOTE | ~2019-04-23 | PLAN ---
[facility] [place] [address] REHAB UNIT PLAN OF CARE Name: ARJUN GOTTI Room #: 515-P ADM IN M.R.#: [id number] Admission: 04/27/19 Attend Phys: Jarrett Haro MD Discharge: Date of : 38 Report #: [id number] THIS REPORT FOR: //name// CC: Jarrett Moctezuma DATE OF SERVICE: 04/29/2019 PROGRESS NOTE/OVERALL PLAN OF CARE SUBJECTIVE: The patient is seen back today in followup. He was in no distress. Sleepy, but arouses. Temperature 99.9, pulse 86, respirations 20, blood pressure 141/80. No focal calf swelling. We have been working with him in therapies and he is max assist with transfers. He is unable to ambulate. Bed mobility is max assist. In occupational therapy, lower body dressing is dependent. Speech Therapy is following him and he is on a mechanical soft, thin liquid diet. He does have severe cognitive deficits with severe memory deficits. ASSESSMENT: 1. Acute encephalopathy. 2. Parkinson's disease. 3. Sepsis secondary to cellulitis. 4. Aspiration pneumonia. 5. Constipation. 6. Atrial fibrillation. PLAN: The overall plan of care is based on the preadmission screen, post-admission physician evaluation and information garnered from therapy assessments. 1. Estimated length of stay is probably at least 2 weeks pending progress. 2. Medical prognosis is reasonably good. 3. Anticipated interventions includes the interdisciplinary acute inpatient rehabilitation program. 4. Anticipated functional outcomes would be for the patient to improve as far as transfers to hopefully become closer to a min assist or at least mod assist with basic transfers and to be able to hopefully ambulate short distances, so that he can get to the point where he can return back to the home setting with the caregivers and the involved. 5. Discharge destination would be back home with and caregivers. 6. Expected therapy by discipline includes PT, OT, speech 1 hour per day each [address] [address] REHAB UNIT PLAN OF CARE Name: ARJUN GOTTI Room #: 515-P [facility] IN [facility].#: [id number] Admission: 04/27/19 Attend Phys: Jarrett Haro MD Discharge: Date of : 38 Report #: [id number] five days a week throughout the duration of the acute inpatient rehabilitation stay. By: [id number] Jarrett Haro MD /[facility]
--- NOTE | ~2019-04-23 | H ---
[facility] [place] [address] HISTORY AND PHYSICAL Name: ARJUN GOTTI Room #: 515-P ADM IN M.R.#: [id number] Admission: 04/27/19 Attend Phys: Jarrett Haro MD Discharge: Date of : 38 Report #: [id number] THIS REPORT FOR: cc: Caesar Moctezuma MD,Caesar Haro,Jarrett Bhatt MD ~ CC: Jarrett Moctezuma DATE OF SERVICE: 04/27/2019 HISTORY AND PHYSICAL/POST-ADMISSION PHYSICIAN EVALUATION HISTORY OF PRESENT ILLNESS: The patient is an 78-year-old white male with a history of prior Parkinson's disease with some dementia, atrial fibrillation, originally admitted to [facility] on 04/18/2019 with mental status changes and cellulitis. He had redness of his left thigh. He was noted to have a fever of 102. White count, which was elevated. He was diagnosed with sepsis, treated in the intensive care unit. He had multifactorial encephalopathy. He was followed by Infectious Disease, treated with IV antibiotics. He was thought to have possible aspiration pneumonia with respiratory treatments. He did pass his swallow evaluation. He had the encephalopathy, multifactorial and his clonazepam and tramadol were stopped. Continuing on carbidopa/levodopa for his Parkinson's. He has an indwelling Calderon catheter, which was placed while he was on the acute medical service. notes that previously, he had been continent. PAST MEDICAL HISTORY: Parkinson's disease, history of atrial fibrillation and status post Watchman procedure. PAST SURGICAL HISTORY: As noted above. MEDICATIONS: Please see the full medication listing as noted. ALLERGIES: No known drug allergies. SOCIAL HISTORY: Lives in a house with his . There are no steps. He had a part-time caregiver assistance 4 hours in the morning and 4 hours in the evening. He tended to spend a fair amount of time in a lift chair. Caregiver were able to get him up with at least mod assist with transfers and he was then typically placed in a wheelchair. Once in the wheelchair they were take him over to the bathroom and he could stand with assistance and go into the bathroom approximately 3 steps with a walker and was able to turn around with assistance to get on to the toilet. assists him during the non-caregiver times. REVIEW OF SYSTEMS: No current complaints of chest pain, shortness of breath or [facility] [address] [place] [address] HISTORY AND PHYSICAL Name: ARJUN GOTTI Room #: 515-P [facility] IN [facility]#: [id number] Admission: 04/27/19 Attend Phys: Jarrett Haro MD Discharge: Date of : 38 Report #: [id number] abdominal discomfort. PHYSICAL EXAMINATION: GENERAL: An 78-year-old white male in no obvious distress. The patient was seen yesterday. VITAL SIGNS: Temperature 99.7, pulse 84, respirations 18, blood pressure 132/85. He was a limited historian, although he was brighter than when seen previous definite slowed cognition with masked facies. Significant latency to his responses, will follow some basic 1 step commands. HEAD, EYES, EARS, NOSE, AND THROAT: Facies otherwise appeared symmetric. CHEST: There might be a few crackles bilaterally. CARDIOVASCULAR: Regular rate and rhythm. ABDOMEN: Bowel sounds positive, nontender. GENITOURINARY AND RECTAL: Deferred. He does have the indwelling Calderon catheter. There was some left leg erythema demarcation. No focal calf swelling. EXTREMITIES: Functional range of motion of the upper and lower extremities with decrease at end range. He does have some obvious bradykinesia with some rigidity and there is some cogwheeling elbows and wrists, some tremor of the right upper extremity more than left. He has some bradykinesia. Strength is probably grade 3+/5 upper and lower extremities. He needs assistance with functional mobility skills. Transfers sit to stand have been max assist. ASSESSMENT: An 78-year-old white male with the following problem list: 1. Multifactorial/metabolic encephalopathy. 2. Parkinson's disease. 3. Sepsis secondary to cellulitis. 4. Aspiration pneumonia. 5. Constipation. 6. Atrial fibrillation. 7. Indwelling Calderon catheter. PLAN: The patient is admitted for acute in-hospital inpatient rehabilitation. From a postadmission physician evaluation perspective, there are no relevant changes since the preadmission screening. Please see the above review of prior and medical conditions and comorbidities. Please see the patient's previous and current functional status. As far as risk of complications, the patient has multiple medical comorbidities as noted above. Initial plan of care involves the interdisciplinary acute inpatient rehabilitation program. Measurable functional goals would be for the patient to become modified independent with transfers, mobility, ADLs, so that he can hopefully return back to his prior living situation. Prognosis is reasonably good with estimated length of stay probably at least 2 weeks. Potential barriers would include his multiple medical comorbidities and decreased functional status. Hopefully, his functional improve and his Calderon catheter can be discharged soon. [facility] [address] [place] [address] HISTORY AND PHYSICAL Name: ARJUN GOTTI Room #: 515-P [facility] IN .R.#: [id number] Admission: 04/27/19 Attend Phys: Jarrett Haro MD Discharge: Date of : 38 Report #: [id number] We will continue with the current medical management while on the rehab jacinto and have PT, OT and speech in the interdisciplinary acute rehabilitation team work with him to maximize his functional independence. The patient does have appropriate discharge goals back home with and caregivers. He meets the medical necessity criteria. He has an appropriate rehab diagnosis as well for acute inpatient rehabilitation. He does have the tolerance for therapies and has appropriate discharge goals back to the home setting. By: [id number] Jarrett Haro MD /[facility]
[~2019-04-23 09:41] MED LIST: ASA81BEC PO; AVODART0.5 MG PO; FISH OIL 1,001000 M3 PO; KLONOPIN0.5 MG PO; LEXAPRO20 MG PO; POTASSIUM99 M1 PO; REMERON15 M2 PO; RYTARY ER 36.21 EACH PO; STOOL SOFTENER100 MG PO; TRAMADOL 50 MG50 MG PO; ULTRAM 50MG TAB50 MG PO; VITAMIN D35000 UNI2 PO
[2019-04-27] MEDS ORDERED: HYDROXYZINE HCL10 M2 PO (14:25)
[2019-04-27] MEDS ORDERED: ENOXAPARIN40 MG/0.1 SUBQ (14:25)
[2019-04-27] MEDS ORDERED: IPRAT-ALBUT 0.5-3 ML INH (14:25)
[2019-04-27] MEDS ORDERED: ACETAMINOPHEN650 MG RECTAL (14:25)
[2019-04-27] MEDS ORDERED: FLOMAX0.4 MG PO (14:25)
[2019-04-27] MEDS ORDERED: VANCOMYCIN1 GM/2002 IV (14:25)
[2019-04-27] MEDS ORDERED: ZOSYN 3/0.373.375 G3 IV (14:25)
[2019-04-27] MEDS ORDERED: HOME MEDICATION PO ×2 (14:25)
--- NOTE | 2019-04-27 15:29 | NUR ---
chart review. cm visited with pt care director rn martin at bedside, distribution tech providing cristina care. cont to keep pt privacy. intro to cm, dcp for acute rehab and team meeting. noted per chart " lives with in house, have ramp to enter home, no stairs has to do. has parkinson walker ustep, has grab bars in shower and able to stand up in shower, also has shower chair if needed. wheel chair. manage medication. he has care director rn from 8a-12 noon, then from 8pm to 11pm. had hh in past and been to [facility] past after had episode in 2017 when was in [place], went to [facility] for resort rehab." per chart and care director rn. will cont following as needed for dc needs.
[2019-04-27 19:40] VITALS: BP 155/113
--- NOTE | 2019-04-27 21:11 | NUR ---
PT WAS TRANSFERRED FROM ROOM 436 (4S) TO 515 (5N) AT APPROX 1810. REPORT WAS TAKEN FROM NURSE. SPOUSE REPORTED TO UNIT BEFORE PT. THIS NURSE ORIENTED SPOUSE & PT TO UNIT, ROOM, & CALL LIGHT. CONSENT FORMS WERE SIGNED & PLACED IN CHART. NEW ID BAND & FALL RISK BAND APPLIED. ADMISSION ASSESSMENT & HISTORY COMPLETED. MEDICATION SENT TO IN PT PHARMACY BY [facility] NURSE. ADMISSIN FOLDER GIVEN & DISCUSSED WITH SPOUSE. PT IS A&O TO SELF. HAS SHAW INTACT. PICTURES OF BUTTOCK & LEFT BACK TAKEN & IN CHART. CONSULTS CALLED. MEDICATION LIST FAXED OVER TO PHARMACY BY [facility] NURSE. PT HAS LFA IV SALINE LOCKED. IS ON 1L OF 02 WITH HUMIDIFICATION. HAS BILAT LE EDEMA 2-3+ ON THE LEFT. HEELS OFF LOADED & ELEVATED. LABS & VITALS REVIEWED. WEIGHT OBTAINED. IS ON LOW AIR LOSS MATRESS. IS ON Q2H TURNS. DENIES PAIN. IS STABLE. SPOUSE REPORTED THAT PT MAY NOT BE ABL TO USE CALL LIGHT, BUT WILL YELL OUT. PT MAY BENEFIT FROM SOFT TOUCH CALL LIGHT. SPOUSE WOULD LIKE TO BE NOTIFIED [facility] ALL CHANGES IN MEDICATIONS & REPORTED THAT DR. TEMPLETON WAS TO ADVANCE PT'S DIET. SPOUSE WOULD ALSO LIKE FOR PT TO TAKE MEDICATIONS DIRECTLY ON SCHEDULE TO PREVENT STIFFENING. FUEL MANAGEMENT HANDLER ESSENCE IS AT BEDSIDE AT THIS TIME. PT WILL HAVE HOME CAREGIVERS AT BEDSIDE THROUGHOUT PT'S STAY. CALL LIGHT WITHIN REACH. WILL CONTINUE TO MONITOR.
--- NOTE | 2019-04-28 02:58 | NUR ---
PT ALERT AND ORIENTED X 1. SHAW PATENT DRAINING DARK YELLOW URINE. LFA SALINE LOCK INTACT AND PATENT. IV ANTIBIOTICS GIVEN. CONGESTED NON-PRODUCTIVE COUGH NOTED. LUNGS COARSE. PT TAKES MEDS WHOLE WITH SIPS OF WATER. NEEDS A LOT OF CUES WITH TAKING MEDS. HERE DURING THE NIGHT. BED ALARM ON FOR SAFETY. PT APPEARS TO BE SLEEPING ON HOURLY ROUNDS.
[2019-04-28 06:05] LABS: HEMATOCRIT 33.8 % (42.0-52.0); HEMOGLOBIN 11.2 gm/dL (14.0-18.0); MCH 31.5 pg (26.0-34.0); MCV 95.5 fL (80.0-100.0); RBC 3.54 mil/uL (4.50-6.00); WBC 5.7 thou/uL (4.0-11.0)
[2019-04-28 06:16] LABS: CALCIUM 7.8 mg/dL (8.5-10.1); CREATININE 0.6 mg/dL (0.7-1.3); MAGNESIUM 1.6 mg/dL (1.8-2.4); POTASSIUM 3.2 mmol/L (3.5-5.1)
[2019-04-28 08:07] VITALS: BP 159/106
--- NOTE | 2019-04-28 12:30 | NUR ---
Received awake on bed. Due medications given as prescribed. A+O to self. On O2 at 1lpm via nasal cannula. On pureed diet- tolerating well; assisted and encouraged in eating and drinking. With clayton catheter in place- draining concentrated urine- output measured and recorded accordingly. With SL at L FA- intact and flushing well; on IV antibiotics. With bilateral LE edema- none weeping, kept elevated. Falls bundle in place. Max assist of 2, able to transfer on the wheelchair. Vital signs stable. With at bedside- wants to be updated re: new medications and if scheduled for any procedure. With caregive during the day shift. With redness on his buttocks and back. On low airloss mattress, pt turned regularly on his sides. Pt for Mg(IV) and K(Oral) correction- Pt's called and informed. To continue monitoring patient.
--- NOTE | 2019-04-28 13:08 | NUR ---
Nutrition: pt admitted to rehab unit with multifactorial/metabolic encephalopathy. Received RD consult. Pt also with L MILO cellulitis. 2-3+ R/L leg edema. Spoke with caregiver. Pt with hx of Parkinsons, dementia. ST follows as pt with dypshagia and requires pureed diet. Eats smaller amounts of meals, 25-50% generally but does very well with chocolate ensure. Caregiver requesting diet upgrade, assured her pt will be evaluated by ST. Pt eats cook islander foods at home typically. Avoids aspartame and wants yogurt daily. UBW reported around current-199#. Low nutrition risk.
--- NOTE | 2019-04-28 14:30 | NUR ---
team meeting, recommendation: re team
[2019-04-28 15:32] VITALS: BP 152/105
[2019-04-28 19:19] VITALS: BP 141/80
--- NOTE | 2019-04-29 00:51 | NUR ---
PT ASSESSMENT DONE AND VSS. FAMILY/CAREGIVER AT BEDSIDE PART OF THE EVENING. MEDS GIVEN ORDERED. FALL PRECAUTIONS IN PLACE. PT GROINING/MUMBLING MOST OF EVENING AFTER FAMILY LEFT. ACTED LIKE HE WAS CONSTIPATED BUT HAD A BM YESTERDAY. CAREGIVER GETTING ANXIOUS AND WANTING TO KNOW WHAT COULD BE DONE. OBTAINED ORDER FOR SUPPOSITORY X 1 TIME FROM [facility]. NO BM IN THE LOWER BOWEL WHEN SUPPOSITORY INSERTED. PT ACTING LIKE HE WAS HAVING ABD PAIN. RESTLESS AND PULLING AT TUBING/IV. WENT TO ANOTHER UNIT TO GET TYLENOL SUPPOSITORY. WHEN I GOT BACK, THE WAS ON THE PHONE. CAREGIVER HAD CALLED HER. EXPLAINED PT BEHAVIOR AND WHAT I HAD DONE SO FAR. AGREED TO PLAN. STATED AGAIN TO CALL HER WITH ANY CHANGES. PT LATER PLAINLY STATED "I HAVE TO PEE" AND "I'M THIRSTY". ENCOURAGED HIM TO GO AHEAD AND URINATE SINCE HE HAD A SHAW IN. FOUND HIM PULLING ON HIS CATHETER TUBING ON ONE VISUAL CHECK. SHAW SECURED. HOB RAISED AND PT COVERED AGAIN. GRADUALLY HE FELL ASLEEP. HOURLY ROUNDING DONE. CALL LIGHT IN REACH. WILL CONTINUE TO MONITOR.
--- NOTE | 2019-04-29 10:42 | NUR ---
pt up in recliner chair, at bedside want to speak with cm. intro to cm, transition of care, ie dme equip, and home health. list choice for hh provided. " had [facility] in past so if he needs that would like to keep continuity of care for him, thanks for meeting with me"/henry
--- NOTE | 2019-04-29 19:00 | NUR ---
ASSUME PT CARE AT 0700. NIGHT NURSE SAID PT WAS RESTLESS LAST NIGHT. NOT ABLE TO GO TO SLEEP UNTIL LATE THIS AM. DR. BRUCE CAME TO SEE PT AND START PT ON TRAZODONE FOR SLEEP TONIGHT. GAVE REPORT TO NIGHT NURSE TO CONTINUE TO MONITOR. SHIFT NOTE: PT ALERT AND ORIENTED X 1. SHAW PATENT HAD DARK URINE THIS AM. CONTINUE TO BE ON ASPIRATION PRECAUTION. HAS CONGESTED NON-PRODUCTIVE COUGH NOTED. LUNGS COARSE. GINNY CAME TO SEE PT AND PUT ORDER FOR LASIX 40MG IV PUSH. MED GIVEN. PT HAD 2300CC YELLOW URINE IN SHAW CATH. LUNG SOUNDS BETER NOW. PT TAKES MEDS WHOLE WITH SIPS OF WATER. NEEDS A LOT OF CUES WITH TAKING MEDS. ST DOWN GRADE PT TO NECTAR THICKENER NOW. LFA SALINE LOCK INTACT AND PATENT. IV ANTIBIOTICS GIVEN. HERE AT BEDSIDE. OFFERED SUPPORTIVE CARE. PARKINSON MEDS GIVEN ORDERED. PT SLEEPY AT TIME. ABLE TO DO BETTER WHEN MEDS GIVEN ON TIME PER THERAPISTS. DENIES PAIN, ON 1L OF O2. VSS. FALL PRECAUTION IN PLACE. MAX OF 2X ASSIST WITH TRANSFERING. BED ALARM ON FOR SAFETY. GAVE REPORT TO NIGHT NURSE TO CONTINUE TO MONITOR.
[2019-04-29 19:25] VITALS: BP 98/69
[2019-04-29 21:27] VITALS: BP 139/93
--- NOTE | 2019-04-30 01:24 | NUR ---
PT ALERT AND ORIENTED X 1. SHAW PATENT DRAINING CLEAR YELLOW URINE. PT TAKES MEDS CRUSHED IN APPLESAUCE WITHOUT DIFFICULTY. TURNED Q2H. TRAZADONE NOT GIVEN AT HS PER INSTRUCTIONS OF PT'S . SHE STATES HIS NEUROLOGIST DOES NOT WANT HIM TAKING IT. BP 98/69 WHEN UP IN W/C. RECHECKED AFTER PT WAS IN BED AND IT WAS 139/93. PT DENIES PAIN OR DISCOMFORT. BED ALARM ON FOR SAFETY. PT APPEARS TO BE SLEEPING ON HOURLY ROUNDS.
[2019-04-30 05:49] LABS: ABSOLUTE NEUTROPHILS 3.6 thou/uL (1.4-8.2); EOSINOPHILS 1.4 % (0.0-3.0); HEMATOCRIT 33.1 % (42.0-52.0); HEMOGLOBIN 10.9 gm/dL (14.0-18.0); LYMPHOCYTES 17.1 % (24.0-44.0); MCH 31.4 pg (26.0-34.0); MCHC 32.9 g/dL (28.0-37.0); MCV 95.2 fL (80.0-100.0); MONOCYTES 10.5 % (1.0-8.0); PLATELET COUNT 264 thou/uL (150-400); RBC 3.47 mil/uL (4.50-6.00); RDW 12.6 % (10.5-14.5); WBC 5.2 thou/uL (4.0-11.0)
[2019-04-30 06:06] LABS: CREATININE 0.8 mg/dL (0.7-1.3); MAGNESIUM 1.7 mg/dL (1.8-2.4)
[2019-04-30 07:46] VITALS: BP 142/93
--- NOTE | 2019-04-30 08:02 | NUR ---
ASSUME PT CARE AT 0700. NIGHT RN SAID HE SLEPT BETTER LAST NIGHT. NO TRAZODONE GIVEN. DENIES PAIN. PARKINSON MED AND MORNING MEDS GIVEN WITH PUDDING. TOLERATED WELL. OFFERED SUPPORTIVE CARE. REDNESS ON BUTTOCKS BETTER. CLEANSED AND APPLIED ZGUARD PASTED. PT IS ON LOW AIR LOSS MATTRESS. CONTINUE TO OFFER SUPPORT. FALL PRECAUTION IN PLACE. CONTINUE TO BE ON ASPIRATION PRECAUTION. LABS REVIEWED. WILL NOTIFY GINNY MAG 1.7, K 3.0. DENIES PAIN, NO SIGN OF DISCOMFORT. REASSESSMENT PER CHART. LAST BM WAS YESTERDAY. WILL CONTINUE TO MONITOR.
--- NOTE | 2019-04-30 10:22 | NUR ---
WOUND CAR F/U ASSESSED L BUTTOCK WOUND W/ PHARMACY CLINICAL COORDINATOR, AREA HEALING, PINK VIABLE TISSUE PRESENT, BLANCHABLE, NO S/S INFECTION, PT COOPERATIVE, REMAINS ON LOW LOSS PUMP TO BED RECOMMENDATIONS; CONT ZGUARD DAILY AND PRN TO BUTTOCK AREA, CONT OFF LOADING PRESSURE RELIEF, CONT LOW AIR LOSS PUMP TO BED PHARMACY CLINICAL COORDINATOR AWARE
[2019-04-30 19:15] VITALS: BP 138/96
--- NOTE | 2019-04-30 23:37 | NUR ---
1900 ASSUMED CARE OF PT AFTER BEDSIDE REPORT, FAMILY MEMEBER AT BEDSIDE. 0 ASSESSMENT COMPLETED SEE ASSESSMENT, SHAW CATH PATENT AND DRAINING, BLE ELEVATED, PT ON SPECIALTY BED, PT AWAKE AND ALERT, BUT DOESN'T ANSWER QUESTION, COOPERATIVE WITH DIRECTIONS, IV FLUSHED WITH NO S/S OF INFILTRATION. ABX GIVEN PER APR WILL CONTINUE WITH Q2HOUR TURNS, AND HOURLY ROUNDING.
--- NOTE | 2019-05-01 02:11 | NUR ---
0200 SPOT CHECKS OF O2 SATS WITHOUT OXYGEN HAVE BEEN 92-93% WITH UNLABORED RESPIRATION, PT RESTING QUIETLY WITH EYES CLOSED.
[2019-05-01 08:45] VITALS: BP 130/88
--- NOTE | 2019-05-01 13:00 | NUR ---
cm notified that wanted to speak with cm about palliative and hospice. new order for dr motta consulted, but unable visit till saturday. per henry " [facility], is good per friends and 2nd would be [facility] hospice if needed"/ henry.
--- NOTE | 2019-05-01 14:48 | NUR ---
FAXED REFERRAL TO [facility] SPOKE WITH SKYLER HERMAN AND HE RECEIVED REFERRAL AND ABDIEL REGAN IS ON HER WAY NOW TO HOSPITAL TO MEET WITH FAMILY. DP TO FOLLOW.
[2019-05-01] MEDS ORDERED: HYDROXYZINE HCL10 M2 PO (17:24)
[2019-05-01] MEDS ORDERED: LEXAPRO20 MG PO (17:24)
--- NOTE | 2019-05-01 19:54 | NUR ---
PATIENT ORIENTED TO SELF WITH SPOUSE AT BEDSIDE. PATIENT TO HOME WITH HOSPICE ON SATURDAY ABOUT 11AM
[2019-05-01 20:24] VITALS: BP 147/87
--- NOTE | 2019-05-02 05:46 | NUR ---
ASSUMED PT CARE AT 1900. RYTARY GIVEN PER FAMILY'S REQUEST, UNABLE TO AROUSE PATIENT ENOUGH TO TAKE LAST DOSE OF THE NIGHT. BUTTOCKS WOUND LOOKS TO BE HEALING. CAREGIVER AT BEDSIDE. ANTIBIOTICS GIVEN PER ORDER. PLANS TO DISCHRAGE [facility] AT 11AM TODAY.
[2019-05-02 05:56] LABS: ABSOLUTE NEUTROPHILS 4.2 thou/uL (1.4-8.2); BASOPHILS 0.7 % (0.0-2.0); EOSINOPHILS 1.1 % (0.0-3.0); HEMATOCRIT 35.1 % (42.0-52.0); HEMOGLOBIN 11.4 gm/dL (14.0-18.0); LYMPHOCYTES 16.6 % (24.0-44.0); MCH 30.9 pg (26.0-34.0); MCHC 32.5 g/dL (28.0-37.0); MONOCYTES 9.1 % (1.0-8.0); PLATELET COUNT 287 thou/uL (150-400); POLYS 72.5 % (36.0-66.0); RBC 3.69 mil/uL (4.50-6.00); RDW 12.9 % (10.5-14.5); WBC 5.9 thou/uL (4.0-11.0)
[2019-05-02 06:01] LABS: CALCIUM 8.8 mg/dL (8.5-10.1); CREATININE 0.9 mg/dL (0.7-1.3); MAGNESIUM 1.6 mg/dL (1.8-2.4); POTASSIUM 3.2 mmol/L (3.5-5.1)
[2019-05-02 08:00] VITALS: BP 121/86
[2019-05-02 09:35] VITALS: BP 147/87
[2019-05-02 10:22] VITALS: BP 147/87
--- NOTE | 2019-05-02 10:57 | NUR ---
PATIENT TO DISCHARGE TO HOME TODAY, WILL LEAVE AT 11:00 VIA AMBULANCE. IV ACSESS DCD. WOUND CARE PICTURES TAKEN. AT BEDSIDE GAVE PATIENT BED BATH AND GOT HIM READY TO LEAVE, THIS NURSE CALLED REPORT TO [facility] NURSE LINDA, THIS NURSE ALSO GAVE PATIENT'S HOME GAGAN. TO TAKE WITH PATIENT. PT TOOK ALL AM MEDS BUT DID NOT EAT BUT BITE OF BREAKFAST, SHAW CATH TO D/D WITH CLEAR YELLOW URINE IN SHAW BAG. PT HAS O2 AT 1 L/NC. NO PAIN OR RESP DISTRESS AT THIS TIME.
[2019-05-02 11:13] VITALS: BP 147/87
--- NOTE | 2019-05-02 12:17 | NUR ---
PT DISCHARGING TODAY TO HOME WITH [facility] FAXED DC ORDERS/SUMMARY TO [facility] RECEIVED CONFIRMATION. SPOKE WITH RUDY FROM [facility] SHE WILL MEET PT AT HOME TRANSPORT ARRANGED BY AMBULANCE ([facility]) FOR 1300 TODAY NOTIFIED PT'S ([facility]) OF TIME OF TRANSPORT AND UNIT NOTIFIED.
--- NOTE | 2019-05-02 13:44 | NUR ---
AMBULANCE HERE AT 13:25 TO TRANSPORT PATIENT HOME. PT TRANSFERED TO [facility] WITH ASSIST XS 3. PT W/O PAIN OR RESP DISTRSS AT DISCHARGE. ALL BELONGINGS INCLUDING PATIENT'S HOME NEDS SENT WITH PATIENT.
[2019-05-02 13:57] VITALS: BP 147/87
--- NOTE | 2019-05-02 13:58 | NUR ---
PATIENT'S SISTER IN LAW STATED PATIENT HAD SKIN BREAKDOWN ON ASSESSMENT THIS NURSE FOUND SNALL PATRICIA SIZE DISCOLORATION BELOW KNEE. NO SWELLING NO OPEN AREAS.NOT PAINFUL TO TOUCH.
== END 2019-05-02 13:25 | disposition hospice, home (50) | DRG 70 ==
PROVIDERS: Nurse Practitioner; ADMIT Physical Medicine & Rehabilitation
DX: G93.41 Metabolic encephalopathy (principal); A41.9 Sepsis, unspecified organism; J69.0 Pneumonitis due to inhalation of food and vomit; L03.116 Cellulitis of left lower limb; G20 Parkinson's disease; K59.00 Constipation, unspecified; I48.91 Unspecified atrial fibrillation; F02.80 Dementia in other diseases classified elsewhere, unspecified severity, without behavioral disturbance, psychotic disturbance, mood disturbance, and anxiety; R33.9 Retention of urine, unspecified; E87.6 Hypokalemia; E83.42 Hypomagnesemia; L40.9 Psoriasis, unspecified; R13.10 Dysphagia, unspecified; F01.50 Vascular dementia, unspecified severity, without behavioral disturbance, psychotic disturbance, mood disturbance, and anxiety; Z28.21 Immunization not carried out because of patient refusal
CPT/HCPCS: 10112